=== PATIENT | male | born 1995 | race Caucasian/White ===

== ENCOUNTER 2018-07-18 18:37 | Emergency (ER) | payer OTHER ==
[~2018-07-18] VITALS: Ht 177.8 cm; Wt 96.6 kg
[~2018-07-18 18:37] MED LIST: IBUP-1222 PO; TRAM100T13 PO
[2018-07-18] MEDS ORDERED: FLUORESCEIN OPHTHALMIC 1 MG STRIP EACHEYE ONE (19:00)
[2018-07-18] MEDS ORDERED: PROPARACAINE OPHTH 0.5%, 15ML EACHEYE ONE (19:00)
[2018-07-18] MEDS ORDERED: PROPARACAINE OPHTH 0.5%, 15ML ONE (19:16)
[2018-07-18 21:26] VITALS: BP 133/78
== END 2018-07-18 21:28 | disposition home or self-care (01) ==
LOC: ED 21:00
DX: H16.9 Unspecified keratitis (principal)
CPT/HCPCS: 99282